=== PATIENT | male | born 1995 | race Caucasian/White ===

== ENCOUNTER 2022-01-14 11:49 | Outpatient (CLI) | payer OTHER, SELFPAY ==
[2022-01-14 14:47] LABS: Chloride* 102 mmol/L (96-114)
[2022-01-14 14:48] LABS: Potassium* 4.7 mmol/L (3.6-5.1); Sodium* 135 mmol/L (135-149)
[2022-01-14 14:50] LABS: Creatinine* 0.8 mg/dL (0.5-1.5); Estimated Glomerular Filt Rate 124 ml/min
[2022-01-14 14:51] LABS: Blood Urea Nitrogen* 15 mg/dL (5-24); Calcium* 10.1 mg/dL (8.4-10.6); Carbon Dioxide* 25 mmol/L (20-32); Glucose* 100 mg/dL (60-115)
== END 2022-01-14 11:50 | disposition home or self-care (01) ==
PROVIDERS: PCP Family Medicine; Visit Provider Family Medicine
DX: R00.2 Palpitations (principal)
CPT/HCPCS: 80048; 84443